=== PATIENT | female | born 1955 | race Caucasian/White ===

== ENCOUNTER 2016-10-07 11:49 | Emergency (ER) | payer MEDICAID, OTHER ==
[2016-10-07 12:29] VITALS: PULSE 86; RESP 16; TEMP 97.5; O2SAT 98
[2016-10-07 12:50] VITALS: BP 120/86
--- NOTE | 2016-10-07 13:50 | UCPHY ---
H & P Time Seen by Provider: 10/07/16 13:14 Patient Type: Established HPI/ROS: This patient presents with a chief complaint of burning in her face, ears, nose and mouth for 2 weeks. She is concerned she might be having an allergic reaction although she has had no rash or obvious swelling. She has had some lesions on her face however. In addition she has some night cough, intermittent nausea without vomiting and no abdominal pain. She has had no fever. REVIEW OF SYSTEMS: Constitutional: No fever, no malaise Eyes: Burning eyes without redness, or discharge. ENT: See above, no sore throat and no ear pain Respiratory: Nighttime cough without shortness of breath, chest pain or wheezing. Cardiac: [] Gastrointestinal: Nausea, no abdominal pain, no diarrhea Genitourinary: Not addressed Musculoskeletal: Not addressed Skin: No rash Neurological: No headache Smoking Status: Former smoker Physical Exam: GENERAL: Well-appearing, well-nourished and in no acute distress. HEAD: Atraumatic, normocephalic. EYES: Pupils equal round and reactive to light, extraocular movements intact, sclera anicteric, conjunctiva are normal. ENT: TMs normal, nares patent, oropharynx clear without exudates. Moist mucous membranes. NECK: Normal range of motion, supple without lymphadenopathy or JVD. LUNGS: Breath sounds clear to auscultation bilaterally and equal. No wheezes rales or rhonchi. HEART: Regular rate and rhythm without murmurs, rubs or gallops. ABDOMEN: Soft, nontender, . No guarding, no rebound. No masses appreciated. EXTREMITIES: Normal range of motion, no pitting or edema. No clubbing or cyanosis. NEUROLOGICAL: Cranial nerves II through XII grossly intact. Normal speech, normal gait. PSYCH: Normal mood, normal affect. SKIN: Warm, dry, normal turgor, no visible rashes or lesions. Constitutional: Initial Vital Signs Temperature (C) 36.4 C 10/07/16 12:21 Heart Rate 86 10/07/16 12:21 Respiratory Rate 16 10/07/16 12:21 O2 Sat (%) 98 10/07/16 12:21 O2 Delivery Mode Room Air Allergies/Adverse Reactions: Penicillins Allergy (Verified 10/07/16 12:26) Home Medications: Medication Instructions Recorded Lisinopril 09/10/14 Wellbutrin Sr 09/10/14 Cymbalta 10/07/16 Levothyroxine 10/07/16 Ventolin Hfa Inhaler PRN 10/07/16 Vitamin D3 10/07/16 Medical Decision Making Differential Diagnosis: I do not believe that this patient's symptoms are secondary to an allergic reaction given the lack of any objective findings. I have no explanation for her symptoms however but can find nothing that would suggest that this is a serious problem. Departure - Departure Disposition: Home, Routine, Self-Care Clinical Impression: Facial burning Condition: Good Additional Instructions: You should follow-up with your primary care physician for further evaluation of this problem. Try using Benadryl as directed on the label. This may be helpful. - PQRS PQRS Measurement: Not applicable
== END 2016-10-07 13:56 | disposition home or self-care (01) ==
LOC: CED 11:49
DX: R20.8 Other disturbances of skin sensation (principal)
CPT/HCPCS: G0463-PO